=== PATIENT | female | born 1950 | race Caucasian/White ===

== ENCOUNTER 2019-06-17 13:24 | Emergency (ER) | payer OTHER ==
[~2019-06-17] VITALS: Ht 152.4 cm; Wt 68.9 kg
[~2019-06-17 13:24] MED LIST: LIPI10 PO; MOTRIN800 MG PO
[2019-06-17 13:43] VITALS: Ht 152.4 cm; Wt 68.9 kg
[2019-06-17] MEDS ORDERED: NEU300 PO (15:41)
[2019-06-17 17:49] VITALS: BP 153/84
== END 2019-06-17 17:49 | disposition home or self-care (01) ==
LOC: ED 13:24
DX: M54.31 Sciatica, right side (principal); E78.00 Pure hypercholesterolemia, unspecified
CPT/HCPCS: J2270; Q0162